=== PATIENT | female | born 1955 | race Caucasian/White ===

== ENCOUNTER → 2016-10-15 | Outpatient (CLI) | payer BC ==
[2016-10-15 13:18] VITALS: BP 133/68; PULSE 80; TEMP 97.8; BMI 35.4
[2016-10-15 14:28] LABS: CH 32.1; CHCM 34.3; HCT 50.9 % (34.0-46.0); HDW 2.67; HGB 16.8 gm/dL (11.4-16.0); MCHC 32.9 g/dL (31.0-37.0); MCV 94.1 fL (80.0-100.0); Mean Platelet Volume 6.3; RBC 5.41 m/uL (3.80-5.40); RDW 12.7 % (11.5-15.5)
[2016-10-15 14:34] LABS: ALT 30 U/L (9-52); AST 18 U/L (14-36); Alkaline Phosphatase 67 U/L (38-126); Anion Gap 11 mmol/L; Blood Urea Nitrogen 15 mg/dL (7-17); Calcium 10.3 mg/dL (8.4-10.2); Carbon Dioxide 28 mmol/L (22-30); Chloride 106 mmol/L (98-107); Glucose 97 mg/dL (74-99); Magnesium 2.1 mg/dL (1.6-2.3); Non-African American GFR(MDRD) >60 (>60 ml/min/1.73 sqM); Potassium 5.1 mmol/L (3.5-5.1); Sodium 145 mmol/L (137-145); Total Bilirubin 1.2 mg/dL (0.2-1.3); Total Protein 7.6 g/dL (6.3-8.2)
[2016-10-15 14:43] LABS: Total Iron Binding Capacity 326 ug/dL (265-497)
[2016-10-15 15:39] LABS: Vitamin B12 868 pg/mL (239-931)
[2016-10-19 17:30] LABS: Selenium 202 mcg/L (63-160)
--- NOTE | 2016-10-29 17:21 | P.HPBAR ---
Bariatric H&P - History & Physicial H&P Date: 10/15/16 History & Physicial: Visit/CC: follow up visit Patient initial contact: Initial weight: 133.47 kg Initial weight in pounds: 294.25 Height: 5 ft 6.7 in Initial BMI: 46.5 Last weight: Current weight: 101.831 kg Current weight in pounds: 224.50 Current BMI: 35.4 [place] body weight (based on NIH guidelines): 60.555 kg Excess body weight loss: 43.3% The patient is a 60 year-old F who presents for Bariatric Assessment. Patient presents today for follow-up. She's had minimal GERD symptoms. She has some crampy nausea. She describes some right quadrant pain. Past Medical History Past Medical History: Diabetes Mellitus, Fibromyalgia, GERD/Reflux, Hyperlipidemia, Hypertension, Osteoarthritis (OA), Sleep Apnea/CPAP/BIPAP Additional Past Medical History / Comment(s): NIDDM type II, USES CPAP AT NIGHT History of Any Multi-Drug Resistant Organisms: None Reported Past Surgical History: Bariatric Surgery, Hysterectomy, Orthopedic Surgery, Tonsillectomy, Tubal Ligation Additional Past Surgical History / Comment(s): 12/16/15 Laparoscopic sleeve gastrectomy with EGD. Other surgical HX: LT KNEE SCOPE, COLONOSCOPY Past Anesthesia/Blood Transfusion Reactions: No Reported Reaction Past Psychological History: Depression Additional Psychological History / Comment(s): Pt states she lives with her spouse and adult tiarra. She is independent. Smoking Status: Never smoker - Past Family History Mother Family Medical History: Hypertension Father Family Medical History: Cancer Surgical - Exam Vital Signs Temp Pulse BP 97.8 F 80 133/68 10/15/16 13:13 10/15/16 13:13 10/15/16 13:13 - General well developed - Abdomen Mild right upper quadrant pain Abdomen: soft Results - Labs 10/15/16 14:00 10/15/16 14:00 Bariatric Assessment & Plan Plan: Patient has some mild right upper quadrant pain. We will schedule him for HIDA scan. We'll also check her labs. Patient GERD symptoms are minimal and will be observed. Bariatric Checklist Checklist: Plan: Checklist: EGD: 1. Hiatal hernia: 2. H. Pylori: HgbA1c: Vitamin D: Smoking: Never smoker Primary care physician referral: Dr. Wooten Psychiatry clearance: Cardiology clearance: Sleep study: Diet journal: VTE risk score: VTE risk level: Rehab needs at discharge:
== END | disposition home or self-care (01) ==
LOC: BARWHC3 12:37
PROVIDERS: ATTEND Surgery
DX: R10.11 Right upper quadrant pain (principal); M79.7 Fibromyalgia; E11.9 Type 2 diabetes mellitus without complications; R94.8 Abnormal results of function studies of other organs and systems; D50.8 Other iron deficiency anemias; E44.0 Moderate protein-calorie malnutrition; E55.9 Vitamin D deficiency, unspecified; E78.5 Hyperlipidemia, unspecified; I10 Essential (primary) hypertension; K21.9 Gastro-esophageal reflux disease without esophagitis; F32.9 Major depressive disorder, single episode, unspecified
CPT/HCPCS: 80053; 82306; 82607; 82746; 83550; 83735; 84255; 84425; 84443; 84630; 85027; 99211

== ENCOUNTER → 2016-10-25 | Outpatient (CLI) | payer BC ==
--- NOTE | 2016-10-25 15:33 | NM ---
EXAMINATION TYPE: NM hepatobiliary w EF DATE OF EXAM: 10/25/2016 COMPARISON: NONE HISTORY: Abnormal pancreatic enzymes. TECHNIQUE: After the intravenous administration of 6 mCi Tc 99m Mebrofenin hepatobiliary scintigraphy is performed. Immediate images post injection. FINDINGS: There is satisfactory initial accumulation of tracer by the liver. The gallbladder is visualized wit hin 6 minutes. The small bowel activity is noted within 18 minutes. At one hour 8 ounces of oral en sure plus is given to mimic CCK and gallbladder ejection fraction is calculated at 85 %, above normal . Therefore there is no scintigraphic evidence of cystic or common bile duct obstruction to suggest acute cholecystitis or gallbladder dyskinesia. IMPRESSION: HYPERCONTRACTILITY OF THE GALLBLADDER.
== END | disposition home or self-care (01) ==
LOC: RADNMMAIN 12:38
PROVIDERS: ATTEND Surgery
DX: K82.0 Obstruction of gallbladder (principal)
CPT/HCPCS: 78226; A9537

== ENCOUNTER → 2016-11-13 | Outpatient (CLI) | payer BC ==
--- NOTE | 2016-11-13 15:56 | CT ---
EXAMINATION TYPE: CT orbits w con DATE OF EXAM: 11/13/2016 COMPARISON: NONE HISTORY: Headache to right eye region x 3-4 months. Right pupil larger than left on and off x [address] DLP: 327.00 mGycm Automated exposure control for dose reduction was used. CONTRAST: Contrast enhanced CT of the orbits was performed in the axial and coronal planes with bone and soft tissue window settings submitted. Performed with IV Contrast, patient injected with 100 mL of Omnipaque 300. FINDINGS: The globes are symmetric. There is no evidence for foreign body. Intraconal and extraconal soft tissu es are symmetric and within normal limits. Optic nerves are unremarkable. There is no evidence for ab normal thickening of the extraocular musculature. Paranasal sinuses are well aerated. Visualized intr acranial structures are unremarkable. IMPRESSION: NO DISTINCT ABNORMALITY IDENTIFIED TO ACCOUNT FOR THE PATIENT'S SYMPTOMS.
== END | disposition home or self-care (01) ==
LOC: RADCTMAIN 15:02
PROVIDERS: ATTEND Internal Medicine
DX: H57.02 Anisocoria (principal); H57.11 Ocular pain, right eye
CPT/HCPCS: 70481; Q9967

== ENCOUNTER → 2018-04-14 | Outpatient (CLI) | payer BC ==
--- NOTE | 2018-04-17 11:11 | MM ---
Reason for exam: screening (asymptomatic). Last mammogram was performed 9 years and 7 months ago. History: Patient is postmenopausal. Physical Findings: A clinical breast exam by your physician is recommended on an annual basis and results should be correlated with mammographic findings. MG 3D Screening Mammo W/Cad Bilateral CC and MLO view(s) were taken. Prior study comparison: September 03, 2008, bilateral digital screening mammogram. August 15, 2000, bilateral special view mammogram. The breast tissue is heterogeneously dense. This may lower the sensitivity of mammography. Finding: There is a 6 mm oval mass in the middle, central position of the left breast. There is a chronic nodularity in the right breast. New finding since September 03, 2008. ASSESSMENT: Incomplete: need additional imaging evaluation, BI-RAD 0 RECOMMENDATION: Ultrasound of the left breast. [facility] will attempt to contact patient to return for ultrasound.
== END | disposition home or self-care (01) ==
LOC: RADMAMWWP 10:53
PROVIDERS: ATTEND Internal Medicine
DX: Z12.31 Encounter for screening mammogram for malignant neoplasm of breast (principal)
CPT/HCPCS: 77063; 77067

== ENCOUNTER → 2018-09-04 | Outpatient (CLI) | payer BC ==
--- NOTE | 2018-09-04 08:33 | USB ---
Reason for exam: additional evaluation requested from abnormal screening. History: Patient is postmenopausal. Physical Findings: Nurse did not find any significant physical abnormalities on exam. US Breast Workup LT Left complete breast ultrasound includes all four quadrants, the retroareolar region and axilla. Finding demonstrates a 0.5 x 0.3 x 0.3cm cystic lesion at 12 o'clock, a 0.6 x 0.3 x 0.4cm cystic lesion at 4 o'clock and a 0.4 x 0.3 x 0.4cm lesion too small to characterize at 10 o'clock. These results were verbally communicated with the patient and result sheet given to the patient on 09/04/18. ASSESSMENT: Probably benign, BI-RAD 3 RECOMMENDATION: Follow-up diagnostic mammogram of both breasts in 6 months. Ultrasound of the left breast in 6 months. Back on schedule for March 2019.
== END | disposition home or self-care (01) ==
LOC: RADUSWWP 06:54
PROVIDERS: ATTEND Internal Medicine
DX: R92.8 Other abnormal and inconclusive findings on diagnostic imaging of breast (principal)